=== PATIENT | male | born 1935 | race African-American/Black ===

== ENCOUNTER 2016-07-20 12:26 | Inpatient (IN) ==
[2016-07-20] MEDS ORDERED: SODIUM CHLORIDE 0.9% 500 ML IV STA (14:00)
[2016-07-20] MEDS ORDERED: HYDROmorphone 2 MG/1 ML VIAL IV STA (14:00)
[2016-07-20] MEDS ORDERED: ONDANSETRON 4 MG/2 ML VIAL IV STA (14:00)
[2016-07-20 14:16] LABS: Basophils % 0.2 % (0.0-0.8); Eosinophils % 0.4 % (0.00-10.9); Hematocrit 24.8 VOL% (42.0-52.0); Hemoglobin 7.5 GM/DL (14.0-18.0); Immature Granulocytes % 0.5 %; Immature Granulocytes Absolute 0.05 #; Lymphocytes # 0.8 10*3/uL (1.4-4.0); Lymphocytes % 7.6 % (21.2-54.2); Mean Corpuscular HGB Conc 30.2 GM/DL (32-36); Mean Corpuscular Hemoglobin 25 PG (27-34); Mean Corpuscular Volume 82.1 FL (87-102); Monocytes # 1.2 10*3/uL (0.11-0.8); Monocytes % 11.3 % (1.7-12.7); Neutrophils # 8.4 10*3/uL (1.4-7.4); Platelet Count 349 T/CUMM (130-400); Red Blood Count 3.02 MC/CUMM (3.8-5.5); Red Cell Distribution Width 18.1 % (9.3-17.3); White Blood Count 10.5 T/CUMM (4-12)
[2016-07-20 14:27] LABS: Albumin 2.9 G/DL (3.4-5.0); Bilirubin,Total 0.4 MG/DL (0.2-1.0); Calcium 8.8 MG/DL (8.5-10.1); Osmolality,Calculated 283.1 MOS/KG (273-304); Potassium 4.1 MMOL/L (3.5-5.1); Total Protein 7.2 G/DL (6.4-8.3)
[2016-07-20] MEDS ORDERED: ONDANSETRON 4 MG/2 ML VIAL ONE (14:53)
[2016-07-20] MEDS ORDERED: HYDROmorphone 2 MG/1 ML VIAL ONE (14:54)
[2016-07-20 15:19] LABS: Apearance,Urine CLEAR (Clear); Bacteria,Urine Occasional /HPF (Few); Bilirubin,Urine Negative (Negative); Blood, Urine Moderate mg/dL (Negative); Glucose,Urine (UA) >=500 mg/dL (Negative); Ketones,Urine Negative (Negative); Mucus,Urine Occasional /LPF (Occasional); Nitrite,Urine Negative (Negative); Protein,Urine 100 MG/DL; RBC,Urine 10 /HPF (0-4); Squamous Epithelial Cell,Urine Occasional /HPF (0-10); Urine Color Yellow (Yellow); Urine Specific Gravity 1.013 (1.001-1.035); Urine Urobilinogen < 2.0 EU/DL (0.2-1.0); WBC,Urine 2 /HPF (0-6)
--- NOTE | 2016-07-20 16:03 | CT Report ---
Referring physician: Saul Barlow EXAM: CT abdomen and pelvis with contrast DATE: 07/20/2016 COMPARISON: None REASON: Left lower quadrant pain TECHNIQUE: Axial images of the abdomen and pelvis were obtained after administration of 100 cc of Omnipaque 350 IV contrast. Coronal and sagittal reformatted images were also provided. Total DLP is 439.80 mGy*cm. FINDINGS: The heart is enlarged with pericardial effusion which measures 17 mm in depth. Coronary artery calcifications are noted. Minimal paraseptal bullous emphysema with diffuse groundglass opacities. There are additional associated irregular noncalcified pulmonary opacities. This includes a 14 mm finding in the right middle lobe and multifocal findings in the right lower lobe with the largest component measuring 24 mm. Small pleural effusions. The liver is normal in size with no masses, dilated ducts, or calcified gallstones. The gallbladder is distended. The spleen, pancreas, adrenal glands have an unremarkable appearance with small bilateral renal cysts. No renal or ureteral calculi are identified. The abdominal aorta is normal in size with diffuse arterial calcifications and no adjacent adenopathy. Small hiatal hernia with decompressed stomach which makes it difficult to exclude wall thickening. No significant dilatation of the small bowel. Increased fecal material in colon with diverticulosis. No evidence of definite diverticulitis with suboptimal demonstration of the appendix. No free air or free fluid. The prostate measures 64 mm in diameter and indents the base the urinary bladder. There is associated diffuse urinary bladder wall thickening. Abnormal marrow signal diffusely in the lumbar spine and pelvis. The findings are more pronounced at T11, L4 and the left hemipelvis. There are associated compression fractures at T11 with 30% compression and atrophy at L4 with 40% compression. There is additional retropulsion of the vertebra into the bony canal with associated significant spinal stenosis at L4 and to a lesser degree at T11. IMPRESSION: Cardiomegaly with moderate pericardial effusion, small bilateral pleural effusions, and coronary artery calcifications. Indeterminate parenchymal density in the right middle lobe and right middle lobe. Masses cannot be excluded. Minimal paraseptal bullous emphysema with diffuse edema/infiltration/atelectasis. Nonspecific distention of the gallbladder with small renal cysts. Nonspecific enlargement of the prostate with associated bladder wall thickening. Limited evaluation of bowel without oral contrast. Small hiatal hernia with decompressed stomach, increased fecal material in the colon, and diverticulosis. Findings consistent with diffuse osseous metastatic disease with pathologic appearing fractures at T11 and L4. The CT exam was performed using one or more of the following dose reduction techniques: Automated exposure control and adjustment of the mA and/or kV according to patient size. PROCEDURE INTERPRETED AT [facility] DEPARTMENT OF RADIOLOGY Final Report Signed by: Dr. Yeimy Suarez
--- NOTE | 2016-07-20 17:49 | Emergency Department Note ---
Sanket Powers Mantricia, am scribing for, and in the presence of, Fortunato Barlow MD 14:01. Cain Powers Doug C, MD, personally performed the services described in this documentation, ascribed by Wiliam Coles in my presence, and it is both accurate and complete [id number] . Arrival - Arrival Chief Complaint: Nausea/Vomiting/Diarrhea Stated Complaint: abdominal pain Mode of Arrival: Stretcher - History of Present Illness HPI Narrative: Patient is a 80-year-old black male presents emergency room complaining of severe epigastric pain with nausea and vomiting that started this morning. Patient states she has never had any pain like this before and the pain radiates straight through to his back. Patient denies any chest pain, diaphoresis, shortness of breath or neck, shoulder or extremity pain. Patient has no history of any significant abdominal problems or coronary artery disease. He has not noticed any blood in his stool has not had any melena. Patient states he does have dyspepsia from time to time which is controlled by taking Tums. Allergies/Adverse Reactions: Allergies Allergy/AdvReac Type Severity Reaction Status Date / Time No Known Drug Allergies Allergy Unknown/Unable Verified 07/20/16 14:44 to obtain Review of System - Review of System 12 point system: reviewed and no additional remarkable complaints except as stated - Review of System Constitutional: Absent: chills, diaphoresis, fever Eyes: Absent: discharge, pain Head/Ears/Nose/Throat: Absent: earache, epistaxis Respiratory: Absent: cough, respiratory distress, wheezing Cardiovascular: Absent: chest pain, palpitations Gastrointestinal: Present: abdominal pain, nausea, vomiting. Absent: diarrhea, hematemesis, melena Genitourinary male: Absent: urgency, dysuria Musculoskeletal: Absent: arm pain, back pain, leg pain, neck pain Skin: Absent: rash, lesions Neurological: Absent: headache, numbness, paresthesias Psychiatric: Absent: anxiety, depression Endocrine: Absent: fatigue, polydipsia, polyuria Hematological/Lymphatic: Absent: easy bleeding, easy bruising Medical,Surgical,& Family Hx - Medical History Cardio: History of: Hypertension Endocrine: History of: Diabetes Mellitus (NIDDM) - Surgical History Surgical History: noncontributory (No prior surgeries) - Family History Family History: Reports;: Family Stroke (Mother and father both of CVAs. Mother did have diabetes mellitus) - Social History Smoking Status: Never smoker Frequency of Alcohol Use: None Exam Vital Signs: Vital Signs Temperature 97.8 F 07/20/16 12:31 Pulse Rate 104 H 07/20/16 12:31 Respiratory Rate 18 07/20/16 12:31 Blood Pressure 126/49 07/20/16 12:31 O2 Sat by Pulse Oximetry 98 07/20/16 12:31 - General General appearance: alert, in no apparent distress - Head Head exam: Present: atraumatic, normocephalic, normal inspection - Eye Eye exam: Present: normal appearance, PERRL, EOMI - ENT ENT exam: Present: normal exam, normal oropharynx, mucous membranes moist, normal external ear exam - Neck Neck exam: Present: normal inspection, full ROM, trachea midline. Absent: tenderness - Chest Chest inspection: Present: normal inspection, symmetric chest wall rise. Absent : tenderness - Respiratory Respiratory exam: Present: normal lung sounds bilaterally - Cardiovascular Cardiovascular exam: Present: regular rate, normal rhythm, normal heart sounds - Abdominal Exam Abdominal exam: Present: soft, tenderness (diffused epigastric tenderness), guarding, diminished bowel sounds. Absent: distention, rebound - Extremities Exam Extremities exam: Present: normal inspection, full ROM, normal capillary refill. Absent: tenderness, pedal edema - Back Exam Back exam: Present: normal inspection, full ROM. Absent: tenderness - Neurological Exam Neurological exam: Present: alert, oriented X3, CN II-XII intact. Absent: motor sensory deficit - Psychiatric Psychiatric exam: Present: normal affect, normal mood - Skin Skin exam: Present: warm, dry, intact, normal color Course Course Narrative: Patient's clinical presentation, laboratory and radiographic findings were discussed with Siomne who is covering the hospitalist service. Patient be typed and matched for 2 units of blood. It is noted that he has a heme positive stool. Results - Labs CBC & BMP: 07/20/16 12:48 07/20/16 12:48 Lab Results: I have reviewed the patients labs Labs: Laboratory Tests 07/20/16 07/20/16 12:48 12:48 RBC 3.02 L Hgb 7.5 L Hct 24.8 L MCV 82.1 L MCH 25 L MCHC 30.2 L RDW 18.1 H Neut % (Auto) 80.0 H Lymph % (Auto) 7.6 L Neut # (Auto) 8.4 H Lymph # (Auto) 0.8 L Sedgwick # (Auto) 1.2 H Sodium 135 L Glucose 340 H Alkaline Phosphatase 196 H Albumin 2.9 L Globulin 4.3 H Albumin/Globulin Ratio 0.6 L - Diagnostic Findings Procedure: CT Abdomen and Pelvis: report reviewed by me (Evidence of metastatic disease and T11 and L4. Prostate enlargement) Disposition Clinical Impression: Symptomatic anemia, Microcytic anemia, Heme positive stool, Bone metastasis Case discussed with: patient, patient's family Disposition: Still a Patient Condition: Guarded Time of Disposition: 17:49
--- NOTE | 2016-07-20 18:16 | Hospitalist History & Physical ---
Assessment and Plan - Time spent with patient Time spent with patient: Greater than 30 minutes (1) Symptomatic anemia Status: Acute Assessment and plan: Patient has been symptomatic secondary to his to his anemia and is now tachycardic. Will go ahead and plan transfusion 2 units of packed red blood cells after appropriate anemia studies have been obtained. Place on proton pump inhibitor and consult GI as he is heme positive as well. Current Visit: Yes (2) Heme positive stool Status: Acute Assessment and plan: Consulting GI for appropriate endoscopic evaluation. We are transfusing at this time and will follow serial hematocrits. Beginning proton pump inhibitor. Current Visit: Yes (3) Bone metastasis Status: Acute Assessment and plan: Patient has evidence of bone metastases on CT of the abdomen and pelvis. There are also some densities in the lung parenchyma. Will need further diagnostic evaluation after he has been stabilized and GI evaluation complete providing he does not give us adequate answer as to the etiology. Current Visit: Yes (4) Hypertension Status: Chronic Assessment and plan: Patient has chronic central hypertension and is currently hemodynamically stable. We will continue his current home medications and follow. Current Visit: Yes Qualifiers: Hypertension type: essential hypertension Qualified Code(s): I10 - Essential (primary) hypertension (5) Diabetes mellitus Status: Chronic Assessment and plan: Patient has type [address] him on Accu-Cheks with sliding scale as well as is his regular oral hypoglycemic agent. Current Visit: Yes Qualifiers: Diabetes mellitus type: type 2 History of Present Illness Chief complaint: Epigastric and chest discomfort History of present illness: Mr. Bejarano is a 80 year old -Citizen Of [place] male followed by Dr. Solano for hypertension, diabetes mellitus type 2 who noted onset of sharp epigastric and lower chest discomfort this morning which is been fairly constant in nature and not associated with shortness of breath, diaphoresis, cough, fever, sputum production. He had minimal nausea this morning but no vomiting and denies any melena, hematochezia, hematemesis, dysuria, hematuria, urinary frequency urgency or incontinence. He states he has had weight loss of approximately 20 pounds however is unable to give a specific timeframe and it appears that this is been over a period of many years. He is a remote smoker but none in 30 years. He denies any alcohol or drug use. He lives alone in [place], [place] and is able to attend to his normal activities of daily living. His home medications have been reviewed and include Janumet, Norvasc, gabapentin. Allergies Allergy/AdvReac Type Severity Reaction Status Date / Time No Known Drug Allergies Allergy Unknown/Unable Verified 07/20/16 14:44 to obtain Medical,Surgical,& Family Hx - Medical History Cardio: History of: Hypertension Endocrine: History of: Diabetes Mellitus (NIDDM) - Surgical History Surgical History: noncontributory - Family History Family History: Reports;: Family Stroke (Mother and father both of CVAs. Mother did have diabetes mellitus) - Social History Smoking Status: Never smoker Frequency of Alcohol Use: None Type of Drug Use: None Lives With:: Alone Functional capacity: independent ambulation 12 point system: reviewed and no additional remarkable complaints except as stated Exam - Constitutional Vitals: Period Temp Pulse Resp BP Sys/Tran Pulse Ox Last 24 Hr 97.8 F 104 18 126/49 98 General appearance: no acute distress - Head Head exam: Present: normocephalic, atraumatic - Eye Eye exam: Present: EOMI, other (Pale conjunctiva) Pupils: Present: KAYLEIGH - ENT ENT exam: Present: normal oropharynx - Neck Neck exam: Present: normal inspection - Respiratory Respiratory exam: Present: clear to auscultation bilaterally. Absent: rales, rhonchi, wheezes - Cardiovascular Cardiovascular exam: Present: regular rate and rhythm, tachycardia. Absent: gallop, JVD, rubs, systolic murmur - GI/Abdominal GI/Abdominal exam: Present: normal bowel sounds, soft. Absent: ascites, distended, guarding, mass, tenderness, rebound - Extremities Exam Extremities exam: Present: normal capillary refill. Absent: calf tenderness, edema - Back Exam Back exam: Present: normal inspection - Neurological Exam Neurological exam: Present: alert, oriented X3, CN II-XII intact. Absent: motor sensory deficit - Psychiatric Psychiatric exam: Present: normal affect, normal mood. Absent: agitated, anxious - Skin Skin exam: Present: warm, dry. Absent: rash Results - Labs CBC & BMP: 07/20/16 12:48 07/20/16 12:48 Lab Results: I have reviewed the past 24 hour labs - Diagnostic Findings Procedure: CT: report reviewed by me Quality Measures - Stroke Symptom Onset Unknown: No
[2016-07-20 18:34] LABS: Ferritin 83.3 ng/ml (26-388); Total Protein 7.3 G/DL (6.4-8.3)
[2016-07-20] MEDS ORDERED: MORPHINE 2 MG/1 ML SYRINGE IV PRN (19:38)
[2016-07-20] MEDS ORDERED: ONDANSETRON 4 MG/2 ML VIAL IV PRN (19:38)
[2016-07-20] MEDS ORDERED: DEXTROSE 50% 25 GM/50 ML VIAL IV PRN (19:38)
[2016-07-20] MEDS ORDERED: GLUCAGON 1 MG VIAL IM PRN (19:38)
[2016-07-20] MEDS ORDERED: SODIUM CHLORIDE 0.9% 250 ML IV PRN (19:38)
[2016-07-20] MEDS ORDERED: PNEUMOCOCCAL VACCINE (13 VALENT) 0.5 ML SYRINGE IM ONE (20:29)
[2016-07-20 20:34] LABS: Basophils % 0.1 % (0.0-0.8); Hematocrit 25.8 VOL% (42.0-52.0); Hemoglobin 7.8 GM/DL (14.0-18.0); Immature Granulocytes % 0.9 %; Immature Granulocytes Absolute 0.15 #; Lymphocytes # 1.1 10*3/uL (1.4-4.0); Lymphocytes % 6.2 % (21.2-54.2); Mean Corpuscular HGB Conc 30.2 GM/DL (32-36); Mean Corpuscular Hemoglobin 25 PG (27-34); Mean Corpuscular Volume 82.2 FL (87-102); Mean Platelet Volume 9.5 FL (9.6-12.0); Monocytes # 1.5 10*3/uL (0.11-0.8); Monocytes % 8.5 % (1.7-12.7); Neutrophils # 14.8 10*3/uL (1.4-7.4); Neutrophils % 84.3 % (38.7-73.9); Platelet Count 401 T/CUMM (130-400); Red Blood Count 3.14 MC/CUMM (3.8-5.5); Red Cell Distribution Width 17.9 % (9.3-17.3); White Blood Count 17.6 T/CUMM (4-12)
[2016-07-20 21:19] LABS: Folate > 24.0 NG/ML (5.4-24.0); Vitamin B12 458 PG/ML (211-911)
[2016-07-20] MEDS: PANTOPRAZOLE 40 MG VIAL IV SCH (21:21)
[2016-07-20 21:35] LABS: Sedimentation Rate-Westergren 111 MM/HR (0-20)
--- NOTE | 2016-07-20 21:53 | XRay Report ---
History: Possible mass Date: 07/20/2016 Study: Chest x-ray PA and lateral Comparison exam: No previous chest x-ray There is mild cardiomegaly. There is no mediastinal mass. There is mild aortic arch calcification. The pulmonary vasculature is not engorged. There is no pleural effusion. There is an ill-defined area of nodular asymmetry in the right upper lung measuring approximately 23 mm, thought to be associated with a larger cavitary area which could measure up to 5.1 cm. There is mild strandy atelectasis in the lower lobes. There is some vague increased sclerosis of the spine which could represent changes of renal osteodystrophy. Clinical correlation is requested. Impression: Suspected cavitary lesion right upper lung. Consider neoplasm, TB, and fungal disease. Consider further evaluation with formal CT chest. Nonspecific mild atelectasis/infiltrate in the lower lobes PROCEDURE INTERPRETED AT [facility] DEPARTMENT OF RADIOLOGY Final Report Signed by: Dr. Parris Stewart
[2016-07-20 22:01] LABS: Anisocytosis Slight; Microcytosis Slight; Platelet Estimate Normal
[2016-07-20] MEDS: INSULIN LISPRO 100 UNIT/ML SUBCUT SCH (22:30)
[2016-07-21 06:13] LABS: Basophils % 0.1 % (0.0-0.8); Eosinophils % 0.1 % (0.00-10.9); Hematocrit 27.4 VOL% (42.0-52.0); Hemoglobin 8.6 GM/DL (14.0-18.0); Immature Granulocytes % 0.6 %; Immature Granulocytes Absolute 0.08 #; Lymphocytes % 7.2 % (21.2-54.2); Mean Corpuscular HGB Conc 31.4 GM/DL (32-36); Mean Corpuscular Hemoglobin 26 PG (27-34); Mean Corpuscular Volume 82.3 FL (87-102); Mean Platelet Volume 10.1 FL (9.6-12.0); Monocytes # 1.9 10*3/uL (0.11-0.8); Monocytes % 13.9 % (1.7-12.7); Neutrophils # 10.5 10*3/uL (1.4-7.4); Neutrophils % 78.1 % (38.7-73.9); Platelet Count 320 T/CUMM (130-400); Red Blood Count 3.33 MC/CUMM (3.8-5.5); Red Cell Distribution Width 17.2 % (9.3-17.3); White Blood Count 13.5 T/CUMM (4-12)
[2016-07-21] MEDS: PANTOPRAZOLE 40 MG VIAL IV SCH (08:53)
[2016-07-21] MEDS: INSULIN LISPRO 100 UNIT/ML SUBCUT SCH ×4 (08:53→20:23)
[2016-07-21] MEDS ORDERED: DEXTROSE 50% 25 GM/50 ML VIAL IV PRN (09:06)
--- NOTE | 2016-07-21 09:28 | Gastrointestinal Consult Note ---
Assessment and Plan (1) Chest pain, atypical Status: Acute Assessment and plan: The patient did improve quite a bit with a GI cocktail. This being said he does have atypical chest pain he does have a history of cardiomyopathy and calcifications in his coronary arteries. I am not sure if internal medicine feels that he needs to have a Cardiologic workup and perhaps troponin levels run to rule out myocardial infarction given the situation. I am sure the hematocrit of 25% did not help his coronary perfusion. I am going to go ahead and schedule him for upper endoscopy to explore for esophagitis, esophageal cancer, gastric cancer, and peptic ulcer disease tomorrow. Risks of the procedure include but are not limited to: Bleeding, infection, perforation, cardiac and pulmonary compromise. It is curious that he has not had more of a bump in his hematocrit given the 2 units he was transfused last night. He is likely still equilibrating. He can tolerate p.o. and so will switch him over to p.o. Protonix. Current Visit: Yes (2) Epigastric abdominal pain Status: Acute Assessment and plan: As noted above, this patient may have peptic ulcer disease. He does not admits any heavy NSAID use. He has not had any melena. He does have significant anemia and so this may have occurred over time. This would be consistent with his weight loss from 2007 of 23 pounds. Current Visit: Yes (3) Symptomatic anemia Status: Acute Assessment and plan: We are attempting to retrieve the colonoscopy results from [facility] as this patient has what appear to be metastases in his spine and colon can certainly produce metastases like this especially given a normal PSA. I will check a CEA level as well while we await these records. We may need to add a colonoscopy before the patient leaves. No obvious liver lesions seen. I personally do not see any blood in the patient's stool, he does have constipation and has some hemorrhoids present but no gross evidence of melena or hematemesis. This anemia may not be associated with GI tract blood loss, although it is microcytic and the GI tract needs to be ruled out first. Current Visit: Yes History of Present Illness Chief complaint: Atypical chest pain, epigastric pain, anemia with hematocrit of 25% History of present illness: Mr. Bejarano is a 80 year old male who states that he is lost approximately 23 pounds over the last 9 years, dropping from his previous weight of 180 pounds to his current weight of 157. Patient does have some minimal reflux symptoms at baseline, yesterday he developed some atypical chest pain and epigastric sharp pain which improved with ingestion of GI cocktail that he described as 7 out of 10 in intensity. The ER describes guaiac positive stools but on physical exam for me he has brown guaiac negative stools. His hematocrit over the last 24 hours has actually increased from initial 24.8 with a hemoglobin of 7.[address] up to 27.4 with a hemoglobin of 8.6 spontaneously. After 2 unit blood transfusion given late last night and early this morning. He does not describe any melena, bright red blood per rectum, coffee-ground emesis, or hematemesis. His abdominal pain is significantly improved with a GI cocktail he got. He did have some nausea and vomiting yesterday but states that the vomitus was the color of "Mountain Dew". His pain is a great deal better at this point. CT scan of the abdomen pelvis show cardiomegaly with moderate pericardial effusion and bilateral pleural effusions with coronary artery calcifications. The patient has bullous emphysema, small hiatal hernia with decompressed stomach, evidence of constipation with diverticulosis as well as diffuse osseous metastatic disease with pathologic fractures at T11 and and L4 with increased prostate size. Interestingly a PSA is 1.6, liver function tests within normal limits, blood sugars are in the thigh 300-400 range. Normal kidney function is noted. 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 He had previously undergone colonoscopy over [facility] he believes sometime in the last 6 years "with some foreign doctor ". Home Medications Medication Instructions Recorded Confirmed Type Amlodipine Besylate 10 mg PO DAILY 07/20/16 07/20/16 History Gabapentin 300 mg PO BID 07/20/16 07/20/16 History Sitagliptin Phos/Metformin HCl 1 tablet PO BID 07/20/16 07/20/16 History [Janumet Xr 50-500 mg Tablet] Allergies Allergy/AdvReac Type Severity Reaction Status Date / Time No Known Drug Allergies Allergy Unknown/Unable Verified 07/20/16 14:44 to obtain Medical,Surgical,& Family Hx - Medical History Cardio: History of: Hypertension HEENT: History of: Eye Problem (hx laser surgery left eye) Endocrine: History of: Diabetes Mellitus (NIDDM) - Family History Family History: Reports;: Family Cancer (sister), Family Diabetes (father), Family Stroke (Mother and father both of CVAs. Mother did have diabetes mellitus) - Social History Smoking Status: Never smoker Frequency of Alcohol Use: None Type of Drug Use: None Review of systems: Constitutional: Denies fever, chills, but positive for recent nausea, and vomiting Eyes: Denies dry eyes, and scleral icterus HENT: Denies headaches Cardiovascular: He does admit to some recent acute chest pain but no claudication Respiratory: Denies shortness of breath, wheezing, and difficulty breathing, denies cough Gastrointestinal: As noted in the HPI Genitourinary: Denies dysuria and hematuria Neurologic: Denies vision loss, and loss of sensation Musculoskeletal: Denies joint swelling, he does complain of some joint stiffness, and muscular weakness Psychiatric: Denies depression and fantasma symptoms Heme-Lymph: Denies easy bruising, lymph node enlargement or tenderness, night sweats, excessive bleeding Allergies-immunologic: Denies pruritus and rhinorrhea Exam - Constitutional Vitals: Period Temp Pulse Resp BP Sys/Tran Pulse Ox Last 24 Hr 97.5 F-99.7 F 104-115 16-20 104-143/49-73 93-99 General appearance: no acute distress Exam: Constitutional: Well-developed, well-nourished, alert, and in no acute distress Head and face: Head: Normocephalic atraumatic Eyes: Conjunctiva without injection, no gross scleral icterus, pupils equal and round bilaterally Ears: Intact to conversation in both ears Nose: External appearance is normal, nares patent Mouth: Oral mucous membranes moist without erythema the patient is edentulous. Neck: Normal appearance, no masses or tenderness, trachea midline Thyroid: Gland midline and appropriate size for age Respiratory: Normal respiratory effort, clear to auscultation without wheezes, rhonchi or rales Cardiovascular: Regular rate and rhythm, normal S1, S2, the exam is without rubs, murmurs or gallops. Gastrointestinal: The patient is having some epigastric tenderness to palpation, normal active bowel sounds, tone normal without rigidity or guarding , no masses present, no hepatomegaly, no spleen tip felt. He does have some hard stool palpable within the rectal vault, mild internal hemorrhoids but stool is brown and guaiac negative on the rectal exam obtained. Lymphatic: Neck without adenopathy, axilla without lymphadenopathy present Musculoskeletal: Right and left lower extremities without evidence of edema , the patient does walk hunched over with spinal pain Skin and subcutaneous tissue: No rashes or ulcerations noted, normal skin turgor, digits and nails without clubbing/cyanosis/deformities. Neurologic: The patient is grossly oriented to person place and time, cranial nerves show tongue movements are normal with normal tongue extrusion midline, light touch sensation is intact. Psychiatric: No hallucinations or delusions are present, does not appear depressed Results - Labs CBC & BMP: 07/21/16 05:11 07/20/16 12:48 Quality Measures - VTE Contraindication to Pharmacological VTE Prophylaxis: Active Bleeding - Stroke Symptom Onset Unknown: No
--- NOTE | 2016-07-21 11:23 | Hospitalist Progress Note ---
Assessment and Plan - Time spent with patient Time spent with patient: Less than 30 minutes (1) Symptomatic anemia Status: Acute Assessment and plan: Patient has been symptomatic secondary to his to his anemia and is now tachycardic. Will go ahead and plan transfusion 2 units of packed red blood cells after appropriate anemia studies have been obtained. Place on proton pump inhibitor and consult GI as he is heme positive as well. 07/21/16: We will continue follow serial hematocrits and transfuse as needed. He is currently doing well and asymptomatic. Current Visit: Yes (2) Heme positive stool Status: Acute Assessment and plan: Consulting GI for appropriate endoscopic evaluation. We are transfusing at this time and will follow serial hematocrits. Beginning proton pump inhibitor. 07/21/16: Patient is currently asymptomatic with no evidence of bleeding. Will continue proton pump inhibitor orally. He is scheduled for esophagogastroduodenoscopy in the a.m. and possible colonoscopy in the future based on old records from [place]. Current Visit: Yes (3) Bone metastasis Status: Acute Assessment and plan: Patient has evidence of bone metastases on CT of the abdomen and pelvis. There are also some densities in the lung parenchyma. Will need further diagnostic evaluation after he has been stabilized and GI evaluation complete providing he does not give us adequate answer as to the etiology. 07/21/16: Awaiting GI evaluation before pursuing other etiologies. Current Visit: Yes (4) Hypertension Status: Chronic Assessment and plan: Patient has chronic central hypertension and is currently hemodynamically stable. We will continue his current home medications and follow. 07/21/16: Patient is currently hemodynamically stable. Continue his current medical regimen. Current Visit: Yes Qualifiers: Hypertension type: essential hypertension Qualified Code(s): I10 - Essential (primary) hypertension (5) Diabetes mellitus Status: Chronic Assessment and plan: Patient has type [address] him on Accu-Cheks with sliding scale as well as is his regular oral hypoglycemic agent. 07/21/16: Patient's blood sugars have been elevated. We have now identified his home medications will reinitiate his oral hypoglycemic agent while continuing Accu-Cheks with sliding scale insulin. Current Visit: Yes Qualifiers: Diabetes mellitus type: type 2 Hospitalist: Subjective Interval history: Mr. Bejarano is doing well this morning. He has no complaints of chest pain, shortness of breath, weakness, GI bleeding. He has been seen by gastroenterology and no plans for esophagogastroduodenoscopy in the a.m. Exam - Constitutional Vitals: Period Temp Pulse Resp BP Sys/Tran Pulse Ox Last 24 Hr 97.5 F-99.9 F 104-115 16-20 104-143/49-73 92-99 General appearance: no acute distress - Head Head exam: Present: normocephalic, atraumatic - Eye Eye exam: Present: EOMI Pupils: Present: KAYLEIGH - ENT ENT exam: Present: normal exam - Neck Neck exam: Present: normal inspection - Respiratory Respiratory exam: Present: clear to auscultation bilaterally - Cardiovascular Cardiovascular exam: Present: regular rate and rhythm - GI/Abdominal GI/Abdominal exam: Present: normal bowel sounds, soft. Absent: tenderness - Extremities Exam Extremities exam: Absent: calf tenderness, edema - Back Exam Back exam: Present: normal inspection - Neurological Exam Neurological exam: Present: alert, oriented X3, CN II-XII intact. Absent: motor sensory deficit - Psychiatric Psychiatric exam: Present: normal affect, normal mood. Absent: agitated, anxious - Skin Skin exam: Present: warm, dry. Absent: erythema Results - Labs CBC & BMP: 07/21/16 05:11 07/20/16 12:48 Lab Results: I have reviewed the past 24 hour labs Quality Measures - VTE Contraindication to Pharmacological VTE Prophylaxis: Active Bleeding - Stroke Symptom Onset Unknown: No
[2016-07-21] MEDS ORDERED: sitaGLIPtin 100 MG TABLET PO SCH (11:30)
[2016-07-21] MEDS ORDERED: metFORMIN 500 MG TABLET PO SCH (12:00)
[2016-07-21] MEDS: amLODIPine 10 MG TABLET PO SCH (12:06)
[2016-07-21] MEDS: metFORMIN 500 MG TABLET PO SCH ×2 (12:10→20:22)
[2016-07-21] MEDS: sitaGLIPtin 25 MG TABLET PO SCH ×2 (12:19→20:22)
[2016-07-21 13:44] LABS: Hemoglobin 9.7 GM/DL (14.0-18.0)
[2016-07-21] MEDS: PANTOPRAZOLE 40 MG TABLET PO SCH (18:27)
[2016-07-21] MEDS: GABAPENTIN 300 MG CAPSULE PO SCH (20:22)
[2016-07-21] MEDS ORDERED: ACETAMINOPHEN 325 MG TABLET PO PRN (20:32)
[2016-07-22 05:53] LABS: Basophils % 0.3 % (0.0-0.8); Eosinophils # 0.1 10*3/uL (0.0-0.87); Hematocrit 30.5 VOL% (42.0-52.0); Hemoglobin 9.5 GM/DL (14.0-18.0); Immature Granulocytes % 0.6 %; Immature Granulocytes Absolute 0.09 #; Lymphocytes # 1.8 10*3/uL (1.4-4.0); Mean Corpuscular HGB Conc 31.1 GM/DL (32-36); Mean Corpuscular Hemoglobin 25 PG (27-34); Mean Corpuscular Volume 81.1 FL (87-102); Mean Platelet Volume 9.6 FL (9.6-12.0); Monocytes # 1.8 10*3/uL (0.11-0.8); Monocytes % 11.9 % (1.7-12.7); Neutrophils # 10.9 10*3/uL (1.4-7.4); Neutrophils % 74.2 % (38.7-73.9); Platelet Count 360 T/CUMM (130-400); Red Blood Count 3.76 MC/CUMM (3.8-5.5); Red Cell Distribution Width 17.4 % (9.3-17.3); White Blood Count 14.7 T/CUMM (4-12)
[2016-07-22] MEDS: PANTOPRAZOLE 40 MG TABLET PO SCH ×2 (06:03→17:36)
[2016-07-22 06:32] LABS: Calcium 8.3 MG/DL (8.5-10.1); Osmolality,Calculated 285.8 MOS/KG (273-304); Potassium 4.2 MMOL/L (3.5-5.1)
--- NOTE | 2016-07-22 07:37 | Gastrointestinal Progress Note ---
Assessment and Plan (1) Chest pain, atypical Status: Acute Assessment and plan: The patient did improve quite a bit with a GI cocktail. This being said he does have atypical chest pain he does have a history of cardiomyopathy and calcifications in his coronary arteries. I am not sure if internal medicine feels that he needs to have a Cardiologic workup and perhaps troponin levels run to rule out myocardial infarction given the situation. I am sure the hematocrit of 25% did not help his coronary perfusion. I am going to go ahead and schedule him for upper endoscopy to explore for esophagitis, esophageal cancer, gastric cancer, and peptic ulcer disease tomorrow. Risks of the procedure include but are not limited to: Bleeding, infection, perforation, cardiac and pulmonary compromise. It is curious that he has not had more of a bump in his hematocrit given the 2 units he was transfused last night. He is likely still equilibrating. He can tolerate p.o. and so will switch him over to p.o. Protonix. 07/22/16--The hematocrit has not changed significantly from yesterday: 24.8%--> 30.5% at this time. The patient is doing fairly well underwent upper endoscopy demonstrated the following-- This patient has LA class B erosive esophagitis explaining his atypical chest pain and some of his anemia. Despite the fact that he had had a colonoscopy done 5-6 years ago over at [facility] I think it is worthwhile to repeat this at this time given the hematocrit drop to 24.8% on admission. If this also is negative we may consider doing capsule endoscopy in the future depending on how he responds to acid blocking medication as an outpatient.. Current Visit: Yes (2) Epigastric abdominal pain Status: Acute Assessment and plan: As noted above, this patient may have peptic ulcer disease. He does not admits any heavy NSAID use. He has not had any melena. He does have significant anemia and so this may have occurred over time. This would be consistent with his weight loss from 2007 of 23 pounds. 07/22/16--the patient did have some mild punctate erosive gastritis, but the pain may be referred from his LA class B erosive esophagitis. We will observe on acid blocking medication but his pain is resolved at this point. Current Visit: Yes (3) Symptomatic anemia Status: Acute Assessment and plan: We are attempting to retrieve the colonoscopy results from [facility] as this patient has what appear to be metastases in his spine and colon can certainly produce metastases like this especially given a normal PSA. I will check a CEA level as well while we await these records. We may need to add a colonoscopy before the patient leaves. No obvious liver lesions seen. I personally do not see any blood in the patient's stool, he does have constipation and has some hemorrhoids present but no gross evidence of melena or hematemesis. This anemia may not be associated with GI tract blood loss, although it is microcytic and the GI tract needs to be ruled out first. 07/22/16--Patient's hematocrit has improved to 30.5% at this time. We will continue to observe this but with the findings of the upper endoscopy noted above. The hematocrit did not increase as expected however, there does not appear to be ongoing bleeding judging from the appearance of endoscopy today. We will likely have the patient follow-up in 4 weeks in the office to see how his hematocrit is looking once the colonoscopy is complete. Current Visit: Yes Gastroenterology - PN: Subj Interval history: No new complaints. Exam (Progress Note) - Constitutional Vitals: Period Temp Pulse Resp BP Sys/Tran Pulse Ox Last 24 Hr 98.1 F-99.9 F 105-110 16-20 122-138/64-73 92-97 General appearance: no acute distress - Eye Eye exam: Present: EOMI - Respiratory Respiratory exam: Present: clear to auscultation bilaterally - Cardiovascular Cardiovascular exam: Present: regular rate and rhythm - GI/Abdominal GI/Abdominal exam: Present: normal bowel sounds, soft. Absent: distended, tenderness, rebound - Neurological Exam Neurological exam: Present: alert, oriented X3 - Psychiatric Psychiatric exam: Present: normal affect, normal mood - Skin Skin exam: Present: warm Results - Labs CBC & BMP: 07/22/16 05:38 07/22/16 05:38
--- NOTE | 2016-07-22 07:42 | Operative Note ---
Date of procedure: 07/22/16 Pre-op diagnosis: Guaiac positive stools in a patient whose hematocrit was 24.8% Post-op diagnosis: other (This patient has LA class B erosive esophagitis explaining his atypical chest pain and some of his anemia. Despite the fact that he had had a colonoscopy done 5-6 years ago over at [facility] I think it is worthwhile to repeat this at this time given the hematocrit drop to 24.8% on admission. If this also is negative we may consider doing capsule endoscopy in the future depending on how he responds to acid blocking medication.) Procedure: PROCEDURE: Esophagogastroduodenoscopy (EGD) with cold biopsy for pathology REFERRING PHYSICIAN: Akash Layne MD INDICATIONS: This patient who has atypical chest pain and epigastric pain with a 20+ pound weight loss since 2007 and guaiac positive stools for upper endoscopy. The prior H&P was reviewed and interrim changes are as noted: No change from GI consultation 2 days ago ENDOSCOPIST: Saad Crooks MD ENDOSCOPE: Olympus Video 100 System upper endoscope ASA CLASS: 3 EXAM: CV: regular rate and rhythm respiratory: Clear without wheezes abdominal: active bowel sounds MEDICATION: Per nursing anesthesia protocol, see their notes PROCEDURE: After discussion of the potential risks and benefits of upper endoscopy, the informed consent was obtained. The patient was then placed in the left lateral decubitus position where sedation was achieved as noted above. Esophageal intubation was performed without difficulty, and the endoscope was advanced through the esophagus, stomach and duodenum. A slow withdrawal was then performed with retroflexion in the stomach for careful inspection of the incisura angularis, fundus and cardia. The scope was then returned to a neutral position and withdrawn through the esophagus. The patient tolerated the procedure well and without complication. BIOPSIES: Gastric antrum/body PHOTOGRAPHS: Obtained FINDINGS: Hypopharynx and Larynx: Normal Esohagoscopy Upper and middle thirds: Normal Lower third LA class B erosive esophagitis 2 cm Esophogastric junctions: LA class B erosive esophagitis 2 cm, no gross evidence of stricturing Gastroscopy: Cardia/Fundus: 3 cm hiatal hernia, scant amount of retained clear fluid in the stomach Body: Mild patchy gastritis, biopsied Antrum and pylorus mild patchy gastritis, biopsied with a few small erosions in the antrum Duodenoscopy: Bulb The bulb appeared to have a small lipoma which was biopsied. Biopsies also taken for sprue Second and third portions: Normal-appearing, biopsied for sprue IMPRESSION: This patient has LA class B erosive esophagitis explaining his atypical chest pain and some of his anemia. Despite the fact that he had had a colonoscopy done 5-6 years ago over at [facility] I think it is worthwhile to repeat this at this time given the hematocrit drop to 24.8% on admission. If this also is negative we may consider doing capsule endoscopy in the future depending on how he responds to acid blocking medication. RECOMMENDATIONS: Follow up for biopsy results in 1-2 weeks by phone [phone] Continue anti-gastroesophageal reflux measures (avoid carbonated and acidic beverages, avoid eating within 2 hours of bedtime, avoid tight fitting clothing , and elevate the front bed posts 6 inches prior to sleeping. Protonix 40 mg twice daily for at least the next month and then once a day prior to suppertime thereafter. Proceed with colonoscopy in 2 days as this is a long weekend and the patient will need a data prep tomorrow. Saad Crooks MD COPY TO: Akash Layne MD Anesthesia: MAC Surgeon / Physician: Saad Crooks Estimated blood loss: minimal Specimens: other (Gastric antrum/body, duodenum) Condition: stable Disposition: post procedure unit (G.I. Suite) Results - Labs CBC & BMP: 07/22/16 05:38 07/22/16 05:38 Discharge Plan - Discharge Medications No Action Sitagliptin Phos/Metformin HCl [Janumet Xr 50-500 mg Tablet] 1 tablet PO BID Amlodipine Besylate 10 mg PO DAILY Gabapentin 300 mg PO BID - Follow Up or Referral - Forms/Instructions
[2016-07-22] MEDS ORDERED: PROPOFOL 200 MG/20 ML VIAL IV ONE (07:49)
[2016-07-22] MEDS ORDERED: LIDOCAINE 2% 5 ML VIAL ONE (07:49)
[2016-07-22] MEDS: INSULIN LISPRO 100 UNIT/ML SUBCUT SCH ×4 (08:00→20:38)
--- NOTE | 2016-07-22 08:17 | Anesthesia Post-Op ---
Anesthesia Post OP - Post Ansesthetic Evaluation Patient seen in post op: Yes Resp: within normal limits CV: within normal limits Mental: within normal limits Temp: within normal limits [id number]: within normal limits Nausea and Vomiting: within normal limits Pain: within normal limits
[2016-07-22] MEDS: sitaGLIPtin 25 MG TABLET PO SCH ×2 (10:14→20:23)
[2016-07-22] MEDS: GABAPENTIN 300 MG CAPSULE PO SCH ×2 (10:14→20:23)
[2016-07-22] MEDS: metFORMIN 500 MG TABLET PO SCH ×2 (10:14→20:23)
[2016-07-22] MEDS: amLODIPine 10 MG TABLET PO SCH (10:14)
--- NOTE | 2016-07-22 10:29 | Hospitalist Progress Note ---
Assessment and Plan - Time spent with patient Time spent with patient: Less than 30 minutes (1) Symptomatic anemia Status: Acute Assessment and plan: Patient has been symptomatic secondary to his to his anemia and is now tachycardic. Will go ahead and plan transfusion 2 units of packed red blood cells after appropriate anemia studies have been obtained. Place on proton pump inhibitor and consult GI as he is heme positive as well. 07/21/16: We will continue follow serial hematocrits and transfuse as needed. He is currently doing well and asymptomatic. 07/22/16: Been no evidence of bleeding and he remains hemodynamically stable with stable hematocrit and hemoglobin. We will follow-up CBC in the a.m. Current Visit: Yes (2) Heme positive stool Status: Acute Assessment and plan: Consulting GI for appropriate endoscopic evaluation. We are transfusing at this time and will follow serial hematocrits. Beginning proton pump inhibitor. 07/21/16: Patient is currently asymptomatic with no evidence of bleeding. Will continue proton pump inhibitor orally. He is scheduled for esophagogastroduodenoscopy in the a.m. and possible colonoscopy in the future based on old records from [place]. 07/22/16: Patient had EGD this morning revealing erosive esophagitis. He is being prepped for colonoscopy. Current Visit: Yes (3) Bone metastasis Status: Acute Assessment and plan: Patient has evidence of bone metastases on CT of the abdomen and pelvis. There are also some densities in the lung parenchyma. Will need further diagnostic evaluation after he has been stabilized and GI evaluation complete providing he does not give us adequate answer as to the etiology. 07/21/16: Awaiting GI evaluation before pursuing other etiologies. Current Visit: Yes (4) Hypertension Status: Chronic Assessment and plan: Patient has chronic central hypertension and is currently hemodynamically stable. We will continue his current home medications and follow. 07/21/16: Patient is currently hemodynamically stable. Continue his current medical regimen. 07/22/16: Continue current regimen. Blood pressure well controlled. Current Visit: Yes Qualifiers: Hypertension type: essential hypertension Qualified Code(s): I10 - Essential (primary) hypertension (5) Diabetes mellitus Status: Chronic Assessment and plan: Patient has type [address] him on Accu-Cheks with sliding scale as well as is his regular oral hypoglycemic agent. 07/21/16: Patient's blood sugars have been elevated. We have now identified his home medications will reinitiate his oral hypoglycemic agent while continuing Accu-Cheks with sliding scale insulin. 07/22/16:. Will continue current regimen. Continue with Accu-Cheks and sliding scale and make adjustments as needed. Current Visit: Yes Qualifiers: Diabetes mellitus type: type 2 (6) Erosive esophagitis Status: Acute Assessment and plan: Patient found to have arisen esophagitis on EGD. Will continue proton pump inhibitor and antireflux measures. Patient is being prepped for colonoscopy. Current Visit: Yes Hospitalist: Subjective Interval history: Patient had EGD this morning. Results are noted as erosive esophagitis. He is going to be prepped for colonoscopy in the next 1-2 days. He denies any chest pain, shortness of breath, abdominal pain, nausea, vomiting, diarrhea, constipation, melena, hematochezia, hematemesis. He states that he is improved from admission. Hemoglobin and hematocrit have been stable since receiving 2 units packed red blood cells on admission. Exam - Constitutional Vitals: Period Temp Pulse Resp BP Sys/Tran Pulse Ox Last 24 Hr 98.1 F-99.9 F 97-110 16-20 122-153/64-083 91-99 General appearance: no acute distress - Head Head exam: Present: normocephalic, atraumatic - Eye Eye exam: Present: EOMI Pupils: Present: KAYLEIGH - ENT ENT exam: Present: normal exam - Neck Neck exam: Present: normal inspection - Respiratory Respiratory exam: Present: clear to auscultation bilaterally. Absent: rales - Cardiovascular Cardiovascular exam: Present: regular rate and rhythm. Absent: tachycardia - GI/Abdominal GI/Abdominal exam: Present: normal bowel sounds, soft. Absent: mass, tenderness - Extremities Exam Extremities exam: Absent: calf tenderness, edema - Back Exam Back exam: Present: normal inspection - Neurological Exam Neurological exam: Present: alert, oriented X3, CN II-XII intact. Absent: motor sensory deficit - Psychiatric Psychiatric exam: Present: normal affect, normal mood. Absent: agitated, anxious - Skin Skin exam: Present: warm, dry. Absent: erythema Results - Labs CBC & BMP: 07/22/16 05:38 07/22/16 05:38 Lab Results: I have reviewed the past 24 hour labs Quality Measures - VTE Contraindication to Pharmacological VTE Prophylaxis: Active Bleeding - Stroke Symptom Onset Unknown: No
[2016-07-22] MEDS: SODIUM CHLORIDE 0.9% 1,000 ML IV SCH ×2 (11:40→21:16)
[2016-07-23 05:59] LABS: Basophils % 0.2 % (0.0-0.8); Eosinophils # 0.1 10*3/uL (0.0-0.87); Eosinophils % 1.1 % (0.00-10.9); Hematocrit 27.8 VOL% (42.0-52.0); Hemoglobin 8.6 GM/DL (14.0-18.0); Immature Granulocytes % 0.6 %; Immature Granulocytes Absolute 0.07 #; Lymphocytes # 1.2 10*3/uL (1.4-4.0); Lymphocytes % 9.4 % (21.2-54.2); Mean Corpuscular HGB Conc 30.9 GM/DL (32-36); Mean Corpuscular Hemoglobin 26 PG (27-34); Mean Corpuscular Volume 83.5 FL (87-102); Mean Platelet Volume 9.4 FL (9.6-12.0); Monocytes # 1.4 10*3/uL (0.11-0.8); Monocytes % 11.1 % (1.7-12.7); Neutrophils # 9.6 10*3/uL (1.4-7.4); Neutrophils % 77.6 % (38.7-73.9); Platelet Count 342 T/CUMM (130-400); Red Blood Count 3.33 MC/CUMM (3.8-5.5); Red Cell Distribution Width 17.2 % (9.3-17.3); White Blood Count 12.4 T/CUMM (4-12)
[2016-07-23 06:23] LABS: Calcium 7.8 MG/DL (8.5-10.1); Osmolality,Calculated 288.8 MOS/KG (273-304); Potassium 4.1 MMOL/L (3.5-5.1)
[2016-07-23] MEDS: PANTOPRAZOLE 40 MG TABLET PO SCH ×2 (06:24→18:02)
[2016-07-23] MEDS: SODIUM CHLORIDE 0.9% 1,000 ML IV SCH ×3 (06:26→16:35)
[2016-07-23] MEDS: metFORMIN 500 MG TABLET PO SCH ×2 (08:33→21:02)
[2016-07-23] MEDS: amLODIPine 10 MG TABLET PO SCH (08:33)
[2016-07-23] MEDS: sitaGLIPtin 25 MG TABLET PO SCH ×2 (08:33→21:06)
[2016-07-23] MEDS: GABAPENTIN 300 MG CAPSULE PO SCH ×2 (08:33→21:08)
[2016-07-23] MEDS: BISACODYL 5 MG TABLET PO SCH ×2 (08:35→16:35)
[2016-07-23] MEDS: INSULIN LISPRO 100 UNIT/ML SUBCUT SCH ×4 (08:35→21:08)
--- NOTE | 2016-07-23 08:53 | Gastrointestinal Progress Note ---
Assessment and Plan (1) Chest pain, atypical Status: Acute Assessment and plan: The patient did improve quite a bit with a GI cocktail. This being said he does have atypical chest pain he does have a history of cardiomyopathy and calcifications in his coronary arteries. I am not sure if internal medicine feels that he needs to have a Cardiologic workup and perhaps troponin levels run to rule out myocardial infarction given the situation. I am sure the hematocrit of 25% did not help his coronary perfusion. I am going to go ahead and schedule him for upper endoscopy to explore for esophagitis, esophageal cancer, gastric cancer, and peptic ulcer disease tomorrow. Risks of the procedure include but are not limited to: Bleeding, infection, perforation, cardiac and pulmonary compromise. It is curious that he has not had more of a bump in his hematocrit given the 2 units he was transfused last night. He is likely still equilibrating. He can tolerate p.o. and so will switch him over to p.o. Protonix. 07/22/16--The hematocrit has not changed significantly from yesterday: 24.8%--> 30.5% at this time. The patient is doing fairly well underwent upper endoscopy demonstrated the following-- This patient has LA class B erosive esophagitis explaining his atypical chest pain and some of his anemia. Despite the fact that he had had a colonoscopy done 5-6 years ago over at [facility] I think it is worthwhile to repeat this at this time given the hematocrit drop to 24.8% on admission. If this also is negative we may consider doing capsule endoscopy in the future depending on how he responds to acid blocking medication as an outpatient.. 07/23/16--The patient definitely has erosive esophagitis, LA class B on EGD. This does explain the atypical chest pain. He is on Protonix twice daily now. Current Visit: Yes (2) Epigastric abdominal pain Status: Acute Assessment and plan: As noted above, this patient may have peptic ulcer disease. He does not admits any heavy NSAID use. He has not had any melena. He does have significant anemia and so this may have occurred over time. This would be consistent with his weight loss from 2007 of 23 pounds. 07/22/16--the patient did have some mild punctate erosive gastritis, but the pain may be referred from his LA class B erosive esophagitis. We will observe on acid blocking medication but his pain is resolved at this point. 07/23/16--although there is some mild punctate erosive gastritis in the above- noted LA class B erosive esophagitis, not sure if this explains completely his anemia and abnormal weight loss. As it is been 5-6 years since his last colonoscopy and we do not have the results of this we will recheck the colon for potential bleeding sources and colon cancer. We will perform this tomorrow. He is being given fluids now and I believe he will be able tolerate a MiraLAX prep, despite the creatinine up to 1.2-->1.7. Current Visit: Yes (3) Symptomatic anemia Status: Acute Assessment and plan: We are attempting to retrieve the colonoscopy results from [facility] as this patient has what appear to be metastases in his spine and colon can certainly produce metastases like this especially given a normal PSA. I will check a CEA level as well while we await these records. We may need to add a colonoscopy before the patient leaves. No obvious liver lesions seen. I personally do not see any blood in the patient's stool, he does have constipation and has some hemorrhoids present but no gross evidence of melena or hematemesis. This anemia may not be associated with GI tract blood loss, although it is microcytic and the GI tract needs to be ruled out first. 07/22/16--Patient's hematocrit has improved to 30.5% at this time. We will continue to observe this but with the findings of the upper endoscopy noted above. The hematocrit did not increase as expected however, there does not appear to be ongoing bleeding judging from the appearance of endoscopy today. We will likely have the patient follow-up in 4 weeks in the office to see how his hematocrit is looking once the colonoscopy is complete. 07/23/16--the patient is post transfusion at this point. Hematocrit is dropped from 30% to 27%. Continue to observe. Colonoscopy planned for tomorrow. Current Visit: Yes Gastroenterology - PN: Subj Interval history: No new complaints, just finished a tray of eggs and orange juice. I thought he been written for clear liquid diet. It turns out he was written for both diets , mysteriously. Exam (Progress Note) - Constitutional Vitals: Period Temp Pulse Resp BP Sys/Tran Pulse Ox Last 24 Hr 98.2 F-99.1 F 74-111 17-20 128-174/65-72 89-94 General appearance: no acute distress - Head Head exam: Present: normocephalic - Eye Eye exam: Present: EOMI - Respiratory Respiratory exam: Present: clear to auscultation bilaterally - Cardiovascular Cardiovascular exam: Present: regular rate and rhythm - GI/Abdominal GI/Abdominal exam: Present: normal bowel sounds, soft. Absent: distended, tenderness, rebound - Neurological Exam Neurological exam: Present: alert, oriented X3 - Psychiatric Psychiatric exam: Present: normal mood - Skin Skin exam: Present: warm Results - Labs CBC & BMP: 07/23/16 05:34 07/23/16 05:34
[2016-07-23 09:18] LABS: Albumin (SPE) 3.3 G/DL (3.2-5.3); Albumin (SPE) Rel % 45.4 %; Total Protein (Chem) 7.3 G/DL (6.4-8.3)
[2016-07-23 09:19] LABS: Alpha 1 (SPE) 0.3 G/DL (0.1-0.4); Alpha 1 (SPE) Rel % 3.6 %; Alpha 2 (SPE) 0.9 G/DL (0.4-1.0); Alpha 2 (SPE) Rel % 12.4 %; Beta (SPE) 0.9 G/DL (0.5-1.1); Beta (SPE) Rel % 12.6 %; Gamma (SPE) 1.9 G/DL (0.7-1.7)
[2016-07-23 09:21] LABS: Hemoglobin A1 (Alkaline) 97.8 % (96.5-98.5); Hemoglobin A2 (Alkaline) 2.2 % (1.5-3.5)
--- NOTE | 2016-07-23 10:18 | Hospitalist Progress Note ---
Assessment and Plan - Time spent with patient Time spent with patient: Less than 30 minutes (1) Symptomatic anemia Status: Acute Assessment and plan: Patient has been symptomatic secondary to his to his anemia and is now tachycardic. Will go ahead and plan transfusion 2 units of packed red blood cells after appropriate anemia studies have been obtained. Place on proton pump inhibitor and consult GI as he is heme positive as well. 07/21/16: We will continue follow serial hematocrits and transfuse as needed. He is currently doing well and asymptomatic. 07/22/16: Been no evidence of bleeding and he remains hemodynamically stable with stable hematocrit and hemoglobin. We will follow-up CBC in the a.m. 07/23/16: There is been no further evidence of bleeding and he remains hemodynamically stable. We will continue to follow H&H. Current Visit: Yes (2) Heme positive stool Status: Acute Assessment and plan: Consulting GI for appropriate endoscopic evaluation. We are transfusing at this time and will follow serial hematocrits. Beginning proton pump inhibitor. 07/21/16: Patient is currently asymptomatic with no evidence of bleeding. Will continue proton pump inhibitor orally. He is scheduled for esophagogastroduodenoscopy in the a.m. and possible colonoscopy in the future based on old records from [place]. 07/22/16: Patient had EGD this morning revealing erosive esophagitis. He is being prepped for colonoscopy. 07/23/16: Patient noted to have erosive esophagitis for which she is receiving proton pump inhibitors. He is being prepped for colonoscopy on 07/24/16. Current Visit: Yes (3) Bone metastasis Status: Acute Assessment and plan: Patient has evidence of bone metastases on CT of the abdomen and pelvis. There are also some densities in the lung parenchyma. Will need further diagnostic evaluation after he has been stabilized and GI evaluation complete providing he does not give us adequate answer as to the etiology. 07/21/16: Awaiting GI evaluation before pursuing other etiologies. Current Visit: Yes (4) Hypertension Status: Chronic Assessment and plan: Patient has chronic central hypertension and is currently hemodynamically stable. We will continue his current home medications and follow. 07/21/16: Patient is currently hemodynamically stable. Continue his current medical regimen. 07/22/16: Continue current regimen. Blood pressure well controlled. 07/23/16: Blood pressures well controlled. Continue current regimen. Current Visit: Yes Qualifiers: Hypertension type: essential hypertension Qualified Code(s): I10 - Essential (primary) hypertension (5) Diabetes mellitus Status: Chronic Assessment and plan: Patient has type [address] him on Accu-Cheks with sliding scale as well as is his regular oral hypoglycemic agent. 07/21/16: Patient's blood sugars have been elevated. We have now identified his home medications will reinitiate his oral hypoglycemic agent while continuing Accu-Cheks with sliding scale insulin. 07/22/16:. Will continue current regimen. Continue with Accu-Cheks and sliding scale and make adjustments as needed. 07/23/16: Blood sugars continue to run high. Will continue to make adjustments in his medical regimen. He will be on liquid diet received bowel prep for colonoscopy tomorrow. Current Visit: Yes Qualifiers: Diabetes mellitus type: type 2 (6) Erosive esophagitis Status: Acute Assessment and plan: Patient found to have arisen esophagitis on EGD. Will continue proton pump inhibitor and antireflux measures. Patient is being prepped for colonoscopy. Current Visit: Yes (7) Acute kidney injury Status: Acute Assessment and plan: Patient has had increase in his creatinine from a baseline of 1.2 on admission. He is mildly tachycardic. I suspect this is secondary to volume. Will increase his IV fluids and give cautious IV bolus today. Follow-up electrolytes and renal function in the a.m. Current Visit: Yes Hospitalist: Subjective Interval history: Patient was seen and examined. He has no complaints today, specifically no chest pain, shortness breath, abdominal pain, back pain, urinary tract symptoms , focal motor weakness or paresthesias, cough or hemoptysis. Exam - Constitutional Vitals: Period Temp Pulse Resp BP Sys/Tran Pulse Ox Last 24 Hr 98.2 F-99.1 F 74-111 17-20 128-174/65-72 89-94 General appearance: no acute distress - Head Head exam: Present: normocephalic, atraumatic - Eye Eye exam: Present: EOMI Pupils: Present: KAYLEIGH - ENT ENT exam: Present: normal exam - Neck Neck exam: Present: normal inspection - Respiratory Respiratory exam: Present: clear to auscultation bilaterally. Absent: rales, rhonchi, wheezes - Cardiovascular Cardiovascular exam: Present: regular rate and rhythm. Absent: tachycardia - GI/Abdominal GI/Abdominal exam: Present: normal bowel sounds, soft. Absent: mass, tenderness - Extremities Exam Extremities exam: Absent: calf tenderness, edema - Back Exam Back exam: Present: normal inspection - Neurological Exam Neurological exam: Present: alert, oriented X3, CN II-XII intact. Absent: motor sensory deficit - Psychiatric Psychiatric exam: Present: normal affect, normal mood. Absent: agitated, anxious - Skin Skin exam: Present: warm, dry. Absent: erythema Results - Labs CBC & BMP: 07/23/16 05:34 07/23/16 05:34 Lab Results: I have reviewed the past 24 hour labs Quality Measures - VTE Contraindication to Pharmacological VTE Prophylaxis: Active Bleeding - Stroke Symptom Onset Unknown: No
[2016-07-23] MEDS ORDERED: SODIUM CHLORIDE 0.9% 1,000 ML IV ONE (10:19)
[2016-07-23] MEDS ORDERED: POLYETHYLENE GLYCOL POWDER 255 GM BOTTLE PO ONE (16:00)
[2016-07-23] MEDS ORDERED: MAGNESIUM CITRATE 300 ML BOTTLE PO ONE (21:00)
[2016-07-24] MEDS: BISACODYL 5 MG TABLET PO SCH
[2016-07-24] MEDS: SODIUM CHLORIDE 0.9% 1,000 ML IV SCH ×3 (02:26→11:03)
[2016-07-24] MEDS: PANTOPRAZOLE 40 MG TABLET PO SCH (06:05)
[2016-07-24 06:23] LABS: Basophils % 0.2 % (0.0-0.8); Eosinophils # 0.2 10*3/uL (0.0-0.87); Hematocrit 26.1 VOL% (42.0-52.0); Hemoglobin 8.2 GM/DL (14.0-18.0); Immature Granulocytes % 0.4 %; Immature Granulocytes Absolute 0.04 #; Mean Corpuscular HGB Conc 31.4 GM/DL (32-36); Mean Corpuscular Hemoglobin 26 PG (27-34); Mean Corpuscular Volume 81.8 FL (87-102); Mean Platelet Volume 9.8 FL (9.6-12.0); Monocytes # 1.4 10*3/uL (0.11-0.8); Monocytes % 14.3 % (1.7-12.7); Neutrophils # 7.2 10*3/uL (1.4-7.4); Neutrophils % 73.1 % (38.7-73.9); Platelet Count 369 T/CUMM (130-400); Red Blood Count 3.19 MC/CUMM (3.8-5.5); White Blood Count 9.9 T/CUMM (4-12)
[2016-07-24 06:39] LABS: Calcium 7.9 MG/DL (8.5-10.1); Osmolality,Calculated 277.8 MOS/KG (273-304); Potassium 4.1 MMOL/L (3.5-5.1)
[2016-07-24] MEDS: INSULIN LISPRO 100 UNIT/ML SUBCUT SCH ×2 (07:30→13:37)
[2016-07-24] MEDS ORDERED: LIDOCAINE 2% 5 ML VIAL ONE (08:18)
[2016-07-24] MEDS ORDERED: PROPOFOL 200 MG/20 ML VIAL IV ONE (08:18)
--- NOTE | 2016-07-24 08:45 | Operative Note ---
Date of procedure: 07/24/16 Pre-op diagnosis: Anemia with hematocrit 26.1, atypical chest pain and esophagitis on EGD Post-op diagnosis: other (No further causes of blood loss seen during this colonoscopy. 7 mm polyp removed by hot biopsy, moderate size internal hemorrhoids noted on retroflex. Incidental mild left-sided diverticulosis noted. From a GI standpoint this patient can be discharged to follow-up in 3 weeks in the office for repeat CBC.) Procedure: PROCEDURE: Colonoscopy with hot biopsy polypectomy REFERRING PHYSICIAN: Akash Layne MD INDICATIONS: This is a patient with hematocrit down to 26% and he does have some atypical chest pain with the discovery of erosive esophagitis on upper endoscopy, we need to rule out second source for ongoing anemia. The prior H&P was reviewed and interrim changes are as noted: No change from GI consultation this admission. ENDOSCOPIST: Saad Crooks MD ENDOSCOPE: [employer] 100 System colonoscope COLON PREPARATION: 238 gm of PEG containing laxative and 1.9 liters of gatoraid/sports drink and dulcolax 15 mg q8 hours x 3 ASA CLASS: 3 EXAM: CV: regular rate and rhythm Respiratory: Clear without wheezes Abdominal: active bowel sounds Rectal: Good tone, no fissures or fistulas MEDICATION: Per nursing anesthesia protocol, see their notes PROCEDURE: After discussion of the potential risks and benefits of colonoscopy, the informed consent was obtained, from patient or health care surrogate. The patient was then placed in the left lateral decubitus position where sedation was achieved as noted above. Rectal examination was followed by insertion of the colonoscope. The colonoscope was passed under direct visualization to the cecum. Advancement was facilitated by insertion/withdrawl techniques, abdominal pressure and patient positioning. Once the cecal pole was reached, slow withdrawal was performed with the findings as noted below. The patient tolerated the procedure well and without complication. QUALITY OF PREP: Excellent WITHDRAWL TIME: 7 minutes 33 seconds BIOPSIES: Sigmoid polyp PHOTOGRAPHS: Obtained FINDINGS: The musoca appeared normal in the following regions: rectum, descending colon, splenic flexure, transverse colon, hepatic flexure, ascending colon and cecum. Position within the cecum was confirmed by ileocecal valve, appendiceal oriface, and the convergence of folds (crows foot). No colitis, mass or AVM was noted throughout the colon. There was a 7 mm polyp noted in the sigmoid colon removed by hot biopsy, no bleeding source was seen in the colon or terminal ileum to account for additional blood loss in this patient. Very mild left-sided diverticulosis noted. Intubation of the TI was achieved x 5 cm with normal appearence, moderate size internal hemorrhoids noted on retroflex IMPRESSION: No further causes of blood loss seen during this colonoscopy. 7 mm polyp removed by hot biopsy, moderate size internal hemorrhoids noted on retroflex. Incidental mild left-sided diverticulosis noted. From a GI standpoint this patient can be discharged to follow-up in 3 weeks in the office for repeat CBC. RECOMMENDATIONS: High fiber diet The patient will need to be on Protonix 40 mg twice daily in order to suppress his esophagitis Repeat colonosocopy will be in 5-10 years depending on pathology of the polyp removed Citrucel 1 tablespoon in 12 oz juice BID: 1 bottle: :11 Follow up by phone for biopsy results in 1-2 weeks by phone Saad Crooks MD COPY TO: Akash Layne MD Anesthesia: MAC Surgeon / Physician: Saad Crooks Estimated blood loss: minimal Specimens: other (Sigmoid polyp.) Condition: stable Disposition: post procedure unit (G.I. Suite) Results - Labs CBC & BMP: 07/24/16 04:35 07/24/16 04:35 Discharge Plan - Discharge Medications No Action Sitagliptin Phos/Metformin HCl [Janumet Xr 50-500 mg Tablet] 1 tablet PO BID Amlodipine Besylate 10 mg PO DAILY Gabapentin 300 mg PO BID - Follow Up or Referral - Forms/Instructions
--- NOTE | 2016-07-24 08:48 | Gastrointestinal Progress Note ---
Assessment and Plan (1) Chest pain, atypical Status: Acute Assessment and plan: The patient did improve quite a bit with a GI cocktail. This being said he does have atypical chest pain he does have a history of cardiomyopathy and calcifications in his coronary arteries. I am not sure if internal medicine feels that he needs to have a Cardiologic workup and perhaps troponin levels run to rule out myocardial infarction given the situation. I am sure the hematocrit of 25% did not help his coronary perfusion. I am going to go ahead and schedule him for upper endoscopy to explore for esophagitis, esophageal cancer, gastric cancer, and peptic ulcer disease tomorrow. Risks of the procedure include but are not limited to: Bleeding, infection, perforation, cardiac and pulmonary compromise. It is curious that he has not had more of a bump in his hematocrit given the 2 units he was transfused last night. He is likely still equilibrating. He can tolerate p.o. and so will switch him over to p.o. Protonix. 07/22/16--The hematocrit has not changed significantly from yesterday: 24.8%--> 30.5% at this time. The patient is doing fairly well underwent upper endoscopy demonstrated the following-- This patient has LA class B erosive esophagitis explaining his atypical chest pain and some of his anemia. Despite the fact that he had had a colonoscopy done 5-6 years ago over at [facility] I think it is worthwhile to repeat this at this time given the hematocrit drop to 24.8% on admission. If this also is negative we may consider doing capsule endoscopy in the future depending on how he responds to acid blocking medication as an outpatient.. 07/23/16--The patient definitely has erosive esophagitis, LA class B on EGD. This does explain the atypical chest pain. He is on Protonix twice daily now. 07/17/16--This patient will need to be on Protonix 40 mg twice daily as an outpatient. Would have him follow-up with me in another 3 weeks in the office to see how his hematocrit is faring at that point. Given the lack of findings of the colonoscopy we may want to do a capsule endoscopy at that point as well. Current Visit: Yes (2) Epigastric abdominal pain Status: Acute Assessment and plan: As noted above, this patient may have peptic ulcer disease. He does not admits any heavy NSAID use. He has not had any melena. He does have significant anemia and so this may have occurred over time. This would be consistent with his weight loss from 2007 of 23 pounds. 07/22/16--the patient did have some mild punctate erosive gastritis, but the pain may be referred from his LA class B erosive esophagitis. We will observe on acid blocking medication but his pain is resolved at this point. 07/23/16--although there is some mild punctate erosive gastritis in the above- noted LA class B erosive esophagitis, not sure if this explains completely his anemia and abnormal weight loss. As it is been 5-6 years since his last colonoscopy and we do not have the results of this we will recheck the colon for potential bleeding sources and colon cancer. We will perform this tomorrow. He is being given fluids now and I believe he will be able tolerate a MiraLAX prep, despite the creatinine up to 1.2-->1.7. 07/24/16--findings as noted above on endoscopy 07/23/16. The patient's colonoscopy demonstrated single polyp in the sigmoid, moderate size internal hemorrhoids were noted on retroflex otherwise this was completely clean without secondary bleeding source. Again, we will have the patient follow-up with CBC in another 3 weeks in the office. Current Visit: Yes (3) Symptomatic anemia Status: Acute Assessment and plan: We are attempting to retrieve the colonoscopy results from [facility] as this patient has what appear to be metastases in his spine and colon can certainly produce metastases like this especially given a normal PSA. I will check a CEA level as well while we await these records. We may need to add a colonoscopy before the patient leaves. No obvious liver lesions seen. I personally do not see any blood in the patient's stool, he does have constipation and has some hemorrhoids present but no gross evidence of melena or hematemesis. This anemia may not be associated with GI tract blood loss, although it is microcytic and the GI tract needs to be ruled out first. 07/22/16--Patient's hematocrit has improved to 30.5% at this time. We will continue to observe this but with the findings of the upper endoscopy noted above. The hematocrit did not increase as expected however, there does not appear to be ongoing bleeding judging from the appearance of endoscopy today. We will likely have the patient follow-up in 4 weeks in the office to see how his hematocrit is looking once the colonoscopy is complete. 07/23/16--the patient is post transfusion at this point. Hematocrit is dropped from 30% to 27%. Continue to observe. Colonoscopy planned for tomorrow. 07/24/16--The patient's hematocrit has decreased slightly, is probably all right to discharged to home to follow-up with me in the office in 3 weeks given the lack of findings on colonoscopy. He will be on Protonix 40 mg twice daily and hopefully this will help regenerate his blood volume. Thank you for the opportunity see this patient will be signing off at this time. Current Visit: Yes Gastroenterology - PN: Subj Interval history: No new complaints, no blood loss noted over the evening time. Exam (Progress Note) - Constitutional Vitals: Period Temp Pulse Resp BP Sys/Tran Pulse Ox Last 24 Hr 97.6 F-98.7 F 83-109 16-22 130-161/68-080 90-98 General appearance: no acute distress - Head Head exam: Present: normocephalic - Eye Eye exam: Present: EOMI - ENT ENT exam: Present: normal exam - Respiratory Respiratory exam: Present: clear to auscultation bilaterally. Absent: rhonchi, stridor, wheezes - Cardiovascular Cardiovascular exam: Present: regular rate and rhythm - GI/Abdominal GI/Abdominal exam: Present: normal bowel sounds, tenderness (Very mild tenderness in the epigastric region), soft. Absent: distended, rebound - Extremities Exam Extremities exam: Present: normal inspection - Neurological Exam Neurological exam: Present: alert, oriented X3 - Psychiatric Psychiatric exam: Present: normal affect, normal mood - Skin Skin exam: Present: warm Results - Labs CBC & BMP: 07/24/16 04:35 07/24/16 04:35
--- NOTE | 2016-07-24 08:57 | Anesthesia Post-Op ---
Anesthesia Post OP - Post Ansesthetic Evaluation Patient seen in post op: Yes Resp: within normal limits CV: within normal limits Mental: within normal limits Temp: within normal limits Ivov-[id number]-[id number]: within normal limits Nausea and Vomiting: within normal limits Pain: within normal limits
[2016-07-24] MEDS: GABAPENTIN 300 MG CAPSULE PO SCH (10:52)
[2016-07-24] MEDS: sitaGLIPtin 25 MG TABLET PO SCH (10:52)
[2016-07-24] MEDS: metFORMIN 500 MG TABLET PO SCH (10:52)
[2016-07-24] MEDS: amLODIPine 10 MG TABLET PO SCH (10:53)
[2016-07-24 11:47] VITALS: BP 152/83
--- NOTE | 2016-07-24 12:29 | Pathology Report from [facility] ---
[facility] ACCESSION # : [id number] PATIENT NAME : Shon Bejarano ORDERING DR : Saad Crooks MD CLINICAL HX: GI bleed POST-OP DX: Same SPECIMEN INFO: #1 Duodenum #2 DECLAN GROSS DESCRIPTION: Received in formalin in two parts labeled:#1 SHON BEJARANO & #1 is an aggregate of briceño mucosal tissue measuring 0.8 x 0.4 cm, submitted in cassette #1.#2 SHON BEJARANO & #2 consists of three briceño mucosal tissue fragments measuring collectively 1 x 0.7 cm, submitted in cassette #2. DIAGNOSIS FOR SHON BEJARANO: #1 DUODENUM: Benign small bowel mucosa with normal villous architecture and marked chronic inflammation. No evidence of sprue. No evidence of ?lipoma.#2 GASTRIC ANTRAL BIOPSY: Chronic antral gastritis. No evidence of malignancy. Special stain for H. pylori-like organisms is NEGATIVE. COLLECTED DATE: 07/22/2016 [facility] REPORT DATE: 07/24/2016 ELECTRONICALLY SIGNED BY: Francis Kramer III, M.D. 07/24/2016 - 9:09:11 [facility]
--- NOTE | 2016-07-24 14:57 | Discharge Summary ---
Hospital Course - Hospital Course Hospital Course: Mr. Bejarano is a 80 year old -[place] male followed by Dr. Solano for hypertension, diabetes mellitus type 2 who noted onset of sharp epigastric and lower chest discomfort this morning which is been fairly constant in nature and not associated with shortness of breath, diaphoresis, cough, fever, sputum production. He had minimal nausea this morning but no vomiting and denies any melena, hematochezia, hematemesis, dysuria, hematuria, urinary frequency urgency or incontinence. He states he has had weight loss of approximately 20 pounds however is unable to give a specific timeframe and it appears that this is been over a period of many years. He is a remote smoker but none in 30 years. He denies any alcohol or drug use. He lives alone in [place], [place] and is able to attend to his normal activities of daily living. The patient was admitted for further evaluation of his anemia and abnormal CT findings. The patient was noted to have abnormalities noted in the right lung as well as the appearance of metastatic lesions in his thoracic and lumbar spine. He under went an upper endoscopy by gastroenterology that showed erosive esophagitis. Colonoscopy was unremarkable other than a polyp. He was transfused and his hemoglobin has been stable. He is being discharged today at his request to follow-up as an outpatient with Dr. Crooks in 3 weeks. They will consider capsule endoscopy as an outpatient. I recommend the patient follow-up with his primary care physician Dr. Solano for further evaluation of his abnormal CT and thoracic, lumbar, chest findings. He needs a metastatic/Cancer workup. I discussed this at length with the patient and his daughter at the bedside. Protonix was recommended as an outpatient and was prescribed. Home medications were reviewed and reconciled. Patient is a full code. Consult for home health and consult for cane for home use. - Time spent with patient Time with patient DS: Greater than 30 minutes Diagnosis - Discharge Diagnosis (1) Hemorrhoids Status: Chronic (2) Polyp of colon Status: Chronic (3) Bone metastasis Status: Acute (4) Erosive esophagitis Status: Acute (5) Heme positive stool Status: Acute (6) Microcytic anemia Status: Acute (7) Symptomatic anemia Status: Acute (8) Diabetes mellitus Status: Chronic (9) Hypertension Status: Chronic Discharge Plan - Discharge Data Disposition: Home Health Service Condition at Discharge: Stable Discharge Diet: diabetic diet Activity: resume usual activities as tolerated Hygiene: no restrictions Contact your physician if you experience:: fever over 101, Nausea/Vomiting, Shortness of breath, pain uncontrolled by pain medications - Discharge Medications New RX: Pantoprazole Tab [Protonix Tab] 40 mg PO BID@0700,1900 #60 tablet Continue RX: Sitagliptin Phos/Metformin HCl [Janumet Xr 50-500 mg Tablet] 1 tablet PO BID RX: Amlodipine Besylate 10 mg PO DAILY RX: Gabapentin 300 mg PO BID - Follow Up or Referral Follow Up: Saad Crooks MD [Physician] - (3 weeks ) - Forms/Instructions Instructions: Acute Kidney Injury (DC), Anemia (DC) Exam - Constitutional Vitals: Period Temp Pulse Resp BP Sys/Tran Pulse Ox Last 24 Hr 97.6 F-98.7 F 83-109 12-22 119-161/68-080 90-98 Exam: Constitutional System: No distress. No tremulousness. Head: Normocephalic, atraumatic. Ears, Nose and Throat System: No pain or tenderness. No epistaxis or discharge Eyes System: Pupils equal, round, and reactive. Extraocular muscles intact. Neck: Supple, without adenopathy, No jugular venous distention. Respiratory System: Chest clear to auscultation. Cardiovascular System: Heart with regular rate and rhythm. No murmur. GI System: Abdomen soft, nontender. Normo active bowel sounds present. Musculoskeletal System: limbs with no pedal edema. Full distal pulses. Neurological System: No discernable sensory deficit. No aphasia Psychiatric System: Conversation is rational Discharge Results Procedures and tests throughout hospitalization: Pending Orders 07/20/16 14:49 Blood Culture Stat 07/23/16 23:22 Occult Blood, Stool Routine Labs on day of discharge: Labs from last 24 hours 07/24/16 07/24/16 07/24/16 11:46 07:12 04:35 WBC RBC Hgb Hct MCV MCH MCHC RDW Plt Count MPV Neut % (Auto) Lymph % (Auto) Phelps % (Auto) Eos % (Auto) Baso % (Auto) Neut # (Auto) Lymph # (Auto) Phelps # (Auto) Eos # (Auto) Baso # (Auto) Immature Gran % Nucleated RBC % Immature Gran # Nucleated RBCs # Anemia Panel Interp Sodium 137 Potassium 4.1 Chloride 107 Carbon Dioxide 21 Anion Gap 13.1 BUN 18 Creatinine 1.10 GFR Calculation 87 BUN/Creatinine Ratio 16.00 Glucose 148 H POC Glucose 342 H 248 H Calculated Osmolality 277.8 Calcium 7.9 L 07/24/16 07/23/16 07/23/16 04:35 20:38 16:48 WBC 9.9 RBC 3.19 L Hgb 8.2 L Hct 26.1 L MCV 81.8 L MCH 26 L MCHC 31.4 L RDW 17.0 Plt Count 369 MPV 9.8 Neut % (Auto) 73.1 Lymph % (Auto) 10.0 L Phelps % (Auto) 14.3 H Eos % (Auto) 2.0 Baso % (Auto) 0.2 Neut # (Auto) 7.2 Lymph # (Auto) 1.0 L Phelps # (Auto) 1.4 H Eos # (Auto) 0.2 Baso # (Auto) 0.0 Immature Gran % 0.4 Nucleated RBC % 0.0 Immature Gran # 0.04 Nucleated RBCs # 0.00 Anemia Panel Interp Sodium Potassium Chloride Carbon Dioxide Anion Gap BUN Creatinine GFR Calculation BUN/Creatinine Ratio Glucose POC Glucose 280 H 228 H Calculated Osmolality Calcium 07/20/16 20:23 WBC RBC Hgb Hct MCV MCH MCHC RDW Plt Count MPV Neut % (Auto) Lymph % (Auto) Phelps % (Auto) Eos % (Auto) Baso % (Auto) Neut # (Auto) Lymph # (Auto) Phelps # (Auto) Eos # (Auto) Baso # (Auto) Immature Gran % Nucleated RBC % Immature Gran # Nucleated RBCs # Anemia Panel Interp See comment Sodium Potassium Chloride Carbon Dioxide Anion Gap BUN Creatinine GFR Calculation BUN/Creatinine Ratio Glucose POC Glucose Calculated Osmolality Calcium Preliminary micro results at discharge 07/20/16 14:49 Blood Culture - Preliminary Blood No growth at 3 days 07/20/16 14:49 Blood Culture - Preliminary Blood No growth at 3 days DS: Provider Date of admission: 07/20/16 17:47 Primary care physician: . No PCP Attending physician on admission: Alysa Sanderson Consults: 07/20/16 19:38 Consult to Physician [CONS] Routine Comment: anemia, heme positive Consulting Provider: Saad Crooks Person Notified: Date Notified: 07/24/16 Time Notified: 09:46 07/21/16 09:44 Consult to Anesthesiology [CONS] Routine Consulting Provider: Reason for Anesthesiology: Pre-op Clearance 07/24/16 14:47 Consult to Case Mgmt/Social Srvs [CONS] Routine Reason for Case Mgmt/Social Srvs: Home Health Consult to Physical Therapy [CONS] Routine Reason for Physical Therapy: Other Consult Comment: pt needs cane to take home per ariel fishman Discharging clinician: Mary Jane Aguiar MD Expected date of discharge: 07/24/16
--- NOTE | 2016-07-25 11:25 | Pathology Report from [facility] ---
[facility] ACCESSION # : [id number] PATIENT NAME : Shon Aguayo ORDERING DR : Saad Crooks MD CLINICAL HX: Anemia POST-OP DX: Same SPECIMEN INFO: Sigmoid colon polyp GROSS DESCRIPTION: Received in formalin labeled SHON AGUAYO is a 0.5 x 0.4 cm aggregate of briceño tissue submitted in one cassette. DIAGNOSIS FOR SHON AGUAYO: SIGMOID COLON POLYP: Hyperplastic polyp. COLLECTED DATE: 07/24/2016 [facility] REPORT DATE: 07/25/2016 ELECTRONICALLY SIGNED BY: Marta Cole M.D. 07/25/2016 - 9:44:34 [facility]ENTER[facility]bra
== END 2016-07-24 16:56 | disposition home health service (06) | DRG 812 ==
LOC: EDUNIT# → EDBD → N.ED 12:26 → SUATTDRO 17:47 → N.EDINP 17:47 → N.5E 19:29
PROVIDERS: ADMIT Hospitalist; ATTEND Family Medicine